=== PATIENT | male | born 1955 | race Caucasian/White ===

== ENCOUNTER 2020-06-27 07:05 | Day surgery (SDC) | payer MEDICARE, OTHER ==
[~2020-06-27] VITALS: Ht 182.9 cm; Wt 64.1 kg
[~2020-06-27 07:05] MED LIST: Aspirin EC81 MG PO; Budeprion Xl300 MG PO; CRANBERRY250 MG PO; FISH1000 PO; GLUCAGEN IJ; Humalog100 UNIT/1 SC; Humulin N100 UNIT/1 SQ; INSULANPEN SC; MELO7.5 PO; METO50ER PO; Mag-G500 MG PO; ONDA4ODT MM; OXYC5 PO; Oxycodone HCl5 M1 PO; TOCO400 PO; VITAMIN C500 MG PO; Zofran4 MG PO; [UNRECOGNIZED DRUG - OTHER] IJ
--- NOTE | 2020-06-27 08:02 | NUR ---
06/27/[address] AWARE OF PT'S ELEVATED HR AND ELEVATED CBG. PT STATES HE HAS NOT TAKEN METOPROLOL IN A COUPLE DAYS. PT INSTRUCTED TO RESUME METOPROLOL TODAY
== END 2020-06-27 08:40 | disposition home or self-care (01) ==
LOC: ORSCSDS 07:05
PROVIDERS: Surgery
PROC: 0DJD8ZZ Inspection of Lower Intestinal Tract, Via Natural or Artificial Opening Endoscopic (ICD-10-PCS; principal; 2020-06-27 08:00)
DX: Z12.11 Encounter for screening for malignant neoplasm of colon (principal); Z86.010 Personal history of colon polyps; F32.9 Major depressive disorder, single episode, unspecified; Z96.41 Presence of insulin pump (external) (internal); I25.10 Atherosclerotic heart disease of native coronary artery without angina pectoris; Z87.891 Personal history of nicotine dependence; Z79.82 Long term (current) use of aspirin; Z79.4 Long term (current) use of insulin; Z79.899 Other long term (current) drug therapy
CPT/HCPCS: 82947; J0461; J2405; J2704; J7120

== ENCOUNTER → 2021-02-17 | Outpatient (CLI) | payer MEDICARE, OTHER | END | disposition home or self-care (01) | LOC: LAB 12:52 → LAB SHORT 12:52 | DX: D22.5 Melanocytic nevi of trunk (principal) | CPT/HCPCS: 88305 ==

== ENCOUNTER 2022-11-03 05:50 | Emergency (ER) | payer MEDICARE, OTHER ==
[~2022-11-03] VITALS: Ht 175.3 cm; Wt 59.0 kg
[2022-11-03] MEDS ORDERED: PANTOPRAZOLE SO40 M2 PO (06:08)
[2022-11-03] MEDS ORDERED: TAMSULOSIN HCL0.4 M1 PO (06:08)
[2022-11-03] MEDS ORDERED: HUMALOG100 UNIT/1 SC (06:08)
[2022-11-03] MEDS ORDERED: ATOR40TA PO (06:09)
== END 2022-11-03 09:20 ==
LOC: ER 05:50
DX: I46.9 Cardiac arrest, cause unspecified (principal); Z88.8 Allergy status to other drugs, medicaments and biological substances; Z79.899 Other long term (current) drug therapy; Z79.82 Long term (current) use of aspirin; Z79.4 Long term (current) use of insulin; E11.9 Type 2 diabetes mellitus without complications; E78.00 Pure hypercholesterolemia, unspecified
CPT/HCPCS: 92950; 99285-25